=== PATIENT | female | born 1980 | race Two or more races ===

== ENCOUNTER 2020-07-19 18:01 | Emergency (ER) | payer OTHER ==
[~2020-07-19] VITALS: Ht 165.1 cm; Wt 103.0 kg
[2020-07-19] MEDS ORDERED: LEFLUNOMIDE20 MG PO (18:11)
[2020-07-19] MEDS ORDERED: VITAMIN D3125 MC1 PO (18:11)
[2020-07-19] MEDS ORDERED: SERTRALINE HCL100 MG PO (18:11)
[2020-07-19] MEDS ORDERED: BUPROPION XL150 MG PO (18:11)
[2020-07-19] MEDS ORDERED: VERAPAMIL ER240 MG PO (18:12)
[2020-07-19] MEDS ORDERED: LORAZEPAM1 MG PO (18:12)
[2020-07-19] MEDS ORDERED: TOPIRAMATE100 MG PO (18:12)
[2020-07-19] MEDS ORDERED: FOLIC ACID1 MG PO (18:12)
[2020-07-19] MEDS ORDERED: HYDROCHLOROTHIA25 MG PO (18:12)
[2020-07-19] MEDS ORDERED: TRAZODONE HCL100 MG PO (18:12)
[2020-07-19] MEDS ORDERED: KEFLEX750 MG PO (18:42)
[2020-07-19] MEDS ORDERED: BACTRIM DS TAB1 EACH PO (18:42)
== END 2020-07-19 19:07 | disposition home or self-care (01) ==
LOC: ER 18:01
DX: S50.872A Other superficial bite of left forearm, initial encounter (principal); W54.0XXA Bitten by dog, initial encounter; Y93.89 Activity, other specified; Y92.89 Other specified places as the place of occurrence of the external cause; Y99.8 Other external cause status